=== PATIENT | female | born 1975 ===

== ENCOUNTER 2018-02-12 06:38 | Day surgery (SDC) | payer OTHER ==
[2017-12-31 10:50] VITALS: BMI 29.9
--- NOTE | 2018-02-12 08:31 | CP.SDSHP ---
Same Day Surgery H & P - History Proposed Procedure: egd Pre-Op Diagnosis: epigastric pain. heartburn - Previous Medical/Surgical History Cardiac: Hypertension, Other (hyperlipidemia, ) Neuro: Backaches Misc: Anemia, Other (Barretts esophagus, gerd, uterine fibroids, Ovarian cyst, internal hemorrhoids) Previous Surgical History: [place]/BSO - Allergies Allergies: Allergies IV CONTRAST Allergy (Uncoded 12/26/16 19:21) SHORTNESS OF BREATH - Physical Exam Vital Signs: Vital Signs 02/12/18 07:00 Temperature 97.8 F Pulse Rate 80 Respiratory 20 Rate Blood Pressure 135/77 O2 Sat by Pulse 97 Oximetry Mental Status: Alert & Oriented x3 Neuro: WNL Heart: WNL Lungs: WNL GI: WNL - Impression Impression: epigastric pain. heartburn. h/o Barretts esophagus Pt. Evaluated Today:Candidate for Anesthesia & Procedure: Yes - Date & Time Date: 02/12/18 Time: 08:32 Short Stay Discharge - Short Stay Discharge Admitting Diagnosis/Reason for Visit: BARRETTS ESOPHAGITS, HEARTBURN, EPIGASTIC PAIN Disposition: HOME/ ROUTINE
[2018-02-12] MEDS ORDERED: Lactated Ringer's 1,000 ML IV ONE (08:35)
[2018-02-12] MEDS ORDERED: Propofol 10 mg/ml Inj (20 ML) ONE (08:38)
[2018-02-12 09:11] VITALS: TEMP 98.4
[2018-02-12 10:07] VITALS: BP 101/70; PULSE 80; RESP 18; O2SAT 99
== END 2018-02-12 10:04 | disposition home or self-care (01) ==
LOC: C.ENDO 06:38
PROVIDERS: ATTEND Internal Medicine Gastroenterology
DX: K21.0 Gastro-esophageal reflux disease with esophagitis (principal); K22.70 Barrett's esophagus without dysplasia; R12 Heartburn; K44.9 Diaphragmatic hernia without obstruction or gangrene; K29.70 Gastritis, unspecified, without bleeding; D64.9 Anemia, unspecified; E78.5 Hyperlipidemia, unspecified; I10 Essential (primary) hypertension
CPT/HCPCS: 43239; 82948; 84703; 88305; 88312; 88313; 88342; J2001; J2704; J3010; J7120